=== PATIENT | male | born 1965 | race Caucasian/White ===

== ENCOUNTER 2021-11-13 08:10 | Day surgery (SDC) | payer MEDICAID ==
[2021-11-12 09:39] VITALS: BMI 33.0
[~2021-11-13 08:10] MED LIST: LIDOCAINE 1% (10MG/ML) FOR IV START INTRADERMA PRN; ONDANSETRON 4 MG/2 ML VIAL IVP PRN
[2021-11-13] MEDS: LACTATED RINGERS 1,000 ML IV SCH ×2 (08:23→08:34)
[2021-11-13 08:27] VITALS: TEMP 98.2
[2021-11-13] MEDS ORDERED: MIDAZOLAM 2 MG/2 ML VIAL ONE (09:11)
[2021-11-13] MEDS ORDERED: PROPOFOL 10 MG/ML 20 ML VIAL IV ONE (09:11)
[2021-11-13] MEDS ORDERED: fentaNYL (PF) 50 MCG/ML 2 ML AMP ONE (09:11)
--- NOTE | 2021-11-13 09:28 | P.PCN ---
Date of Procedure: 11/13/21 Preoperative Diagnosis: Screening Postoperative Diagnosis: Transverse colon polyp x 2 Procedure(s) Performed: Colonoscopy with hot snare polypectomy Anesthesia: MAC Surgeon: Malka Galicia Pathology: other (Transverse colon polyps) Condition: stable Disposition: same day Indications for Procedure: 56-year-old male presents today for screening colonoscopy. Risks, benefits and alternatives were provided to the patient. No significant evidence of rectal bleeding. Operative Findings: Transverse colon polyps Description of Procedure: The patient was brought into the endoscopy suite and placed in left lateral decubitus position. Adequate sedation was achieved using conscious sedation. A digital rectal exam was performed and internal hemorrhoids were palpated. An endoscope was then placed in the rectum and advanced to the cecum as identified by landmarks including the appendiceal orifice and the ileocecal valve. The prep was good. The colonoscope was then slowly withdrawn, examining for any mucosal abnormalities. The cecum, ascending, transverse, descending and sigmoid colon were visualized adequately. There were no large neoplastic lesions noted throughout the colon. 2 polyps were noted in the distal transverse colon. One was removed with forceps polypectomy and the other was removed with hot snare polypectomy. These were in close proximity to each other. Hemostasis was maintained. There was no evidence of diverticulosis. Retroflexion was performed in the rectum and internal hemorrhoids were visible. Excess air was removed, the colonoscope withdrawn and the procedure terminated. The patient was then transferred to the recovery unit in stable condition. Repeat colonoscopy should be performed in 5 years.
[2021-11-13 09:38] VITALS: RESP 16
[2021-11-13 09:51] VITALS: BP 129/79; PULSE 65
== END 2021-11-13 10:30 | disposition home or self-care (01) ==
LOC: ORWHC2ENDO 08:10
PROVIDERS: ATTEND Surgery
DX: Z12.11 Encounter for screening for malignant neoplasm of colon (principal); D12.3 Benign neoplasm of transverse colon
CPT/HCPCS: 45380; 45385; 88305; J2250; J3010; J2704

== ENCOUNTER → 2022-05-21 | Outpatient (CLI) | payer MEDICAID ==
[2022-05-21 15:05] LABS: ALT 56 U/L (10-49); AST 41 U/L (14-35); Chol/HDL Ratio 3.08 Ratio; LDL Cholesterol,Calculated 62.1 mg/dL (0.0-131.0); VLDL Calculation 15.58 mg/dL (5.00-40.00)
== END | disposition home or self-care (01) ==
LOC: LABWHC1 07:04
PROVIDERS: ATTEND Internal Medicine Cardiovascular Disease
DX: E78.2 Mixed hyperlipidemia (principal)
CPT/HCPCS: 36415; 80061; 84450; 84460

== ENCOUNTER 2024-07-09 02:49 | Emergency (ER) | payer MEDICAID ==
[2024-07-09 02:54] VITALS: TEMP 97.8
--- NOTE | 2024-07-09 03:43 | ED ---
General Adult HPI - General Source: patient, RN notes reviewed Mode of arrival: ambulatory Limitations: no limitations <Ana Berry - Last Filed: 07/09/24 03:43> <Mikhail Sylvester - Last Filed: 07/09/24 06:09> - General Chief complaint: Back Pain/Injury Stated complaint: Abd & Back Pain Time Seen by Provider: 07/09/24 03:15 - History of Present Illness Initial comments: Quick note- 59-year-old male presenting with complaint of left flank pain radiation into his abdomen and groin that started approximately 12 hours prior to arrival. He denies hematuria, dysuria. States he has a urgency to use the restroom. Denies fevers, chills, nausea, vomiting. (Ana Berry) Dictation was produced using [email or web address] dictation software. please excuse any grammatical, word or spelling errors. Chief Complaint: 59-year-old male with left flank pain History of Present Illness: Patient 59-year-old male with multiple comorbidities presents emergency department 1 day of flank pain. States that its severe in the left flank radiates to his right groin. No history of kidney stones. Denies any hematuria or abnormal urine color. Denies any associated nausea or diaphoresis. Denies any diarrhea. He has been dealing with a cold symptoms recently. The ROS documented in this emergency department record has been reviewed and confirmed by me. Those systems with pertinent positive or negative responses have been documented in the HPI. All other systems are other negative and/or noncontributory. (Mikhail Sylvester) - Related Data Home Medications Medication Instructions Recorded Confirmed Atorvastatin [Lipitor] 80 mg PO DAILY 01/07/15 11/13/21 Carvedilol [Coreg] 12.5 mg PO BID 01/07/15 11/13/21 Famotidine 20 mg PO QAM 01/07/15 11/13/21 Nitroglycerin Sl Tabs [Nitrostat] 0.4 mg SUBLINGUAL DIRECTED PRN 01/07/15 11/13/21 Aspirin [Adult Low Dose Aspirin EC] 81 mg PO DAILY 11/12/21 11/13/21 HYDROcodone/APAP 5-325MG [[place] 1 tab PO DAILY PRN 11/12/21 11/13/21 5-325] Naproxen 500 mg PO BID 11/12/21 11/13/21 Phentermine HCl [Adipex-P] 37.5 mg PO DAILY 11/12/21 11/13/21 amLODIPine [Norvasc] 10 mg PO DAILY 11/12/21 11/13/21 Allergies Allergy/AdvReac Type Severity Reaction Status Date / Time No Known Allergies Allergy Verified 07/09/24 02:54 Review of Systems ROS Other: All systems not noted in ROS Statement are negative. <Ana Berry - Last Filed: 07/09/24 03:43> ROS Other: All systems not noted in ROS Statement are negative. <Mikhail Sylvester - Last Filed: 07/09/24 06:09> ROS Statement: Those systems with pertinent positive or pertinent negative responses have been documented in the HPI. Past Medical History Past Medical History: Coronary Artery Disease (CAD), Hypertension, Myocardial Infarction (DE), Pulmonary Embolus (PE), Rheumatoid Arthritis (RA) Additional Past Medical History / Comment(s): . Last Myocardial Infarction Date:: 10/2011 History of Any Multi-Drug Resistant Organisms: None Reported Past Surgical History: Heart Catheterization With Stent, Hernia Repair, Joint Replacement, Orthopedic Surgery Additional Past Surgical History / Comment(s): meniscus tear repair rt knee, one cardiac stents, rt knee replacement, mult surgeris:rt wrist and rt fingers, bhakti cheeks and collar bone due to injury Past Anesthesia/Blood Transfusion Reactions: Previous Problems w/ Anesthesia, Motion Sickness Additional Past Anesthesia/Blood Transfusion Reaction / Comment(s): "took me awhile to come out" with one surgery Date of Last Stent Placement:: 2011 Past Psychological History: No Psychological Hx Reported Smoking Status: Never smoker - Past Family History Brother(s) Additional Family Medical History / Comment(s): BROTHER #1 -ALCOHOLISM,CHF AGE 27,BROTHER #2 "HEART EXPLODED" AGE 38, BROTHER #3 CABG 2 VESSEL AT AGE 32 Mother Family Medical History: Cancer <Ana Berry - Last Filed: 07/09/24 03:43> General Exam Limitations: no limitations <Ana Berry - Last Filed: 07/09/24 03:43> <Mikhail Sylvester - Last Filed: 07/09/24 06:09> - General Exam Comments Initial Comments: Visual Physical Exam Vital signs reviewed General: Well-appearing, nontoxic, no acute distress. Head: Normocephalic, atraumatic Eyes: PERRLA, EOMI ENT: Airway patent Chest: Nonlabored breathing Skin: No visual rash, normal skin tone Neuro: Alert and oriented 3 Musculoskeletal: No gross abnormalities (Ana Berry) PHYSICAL EXAM: General Impression: Alert and oriented x3, not in acute distress HEENT: Normocephalic atraumatic, extra-ocular movements intact, pupils equal and reactive to light bilaterally, mucous membranes moist. Cardiovascular: Heart regular rate and rhythm Chest: Able to complete full sentences, no retractions, no tachypnea Abdomen: abdomen soft, non-tender, non-distended, no organomegaly Musculoskeletal: Pulses present and equal in all extremities, no peripheral edema Motor: no focal deficits noted Neurological: CN II-XII grossly intact, no focal motor or sensory deficits noted Skin: Intact with no visualized rashes Psych: Normal affect and mood (Mikhail Sylvester) Course Vital Signs 07/09/24 07/09/24 07/09/24 02:50 03:43 05:04 Temperature 97.8 F Pulse Rate 81 70 71 Respiratory 18 18 19 Rate Blood Pressure 207/125 197/117 185/93 O2 Sat by Pulse 96 95 95 Oximetry Medical Decision Making <Ana Berry - Last Filed: 07/09/24 03:43> - Lab Data Result diagrams: 07/09/24 04:26 07/09/24 04:26 <Mikhail Sylvester - Last Filed: 07/09/24 06:09> - Medical Decision Making I completed the quick note portion of this chart signed Ana Berry PA-C (Ana Berry) Was pt. sent in by a medical professional or institution (JUSTIN Daniels, VACUUM TECHNICIAN, urgent care, hospital, or residential...) When possible be specific @ -No Did you speak to anyone other than the patient for history (EMS, parent, family, police, friend...)? What history was obtained from this source @ -No Did you review nursing and triage notes (agree or disagree)? Why? @ -I reviewed and agree with nursing and triage notes Were old charts reviewed (outside hosp., previous admission, EMS record, old EKG, old radiological studies, urgent care reports/EKG's, residential records)? Report findings @ -No old charts were reviewed Differential Diagnosis (chest pain, altered mental status, abdominal pain women, abdominal pain men, vaginal bleeding, musculoskeletal, weakness, fever, dyspnea, syncope, headache, dizziness, GI bleed, back pain, seizure, CVA, palpatations, mental health)? @ -Differential Abdominal Pain Men: Appendicitis, cholecystitis, diverticulosis, ischemic bowel, pancreatitis, hepatitis, UTI, gastroenteritis, AAA, incarcerated hernia, bowel obstruction, constipation, inflammatory bowel, hepatitis, peptic ulcer disease, splenic infarction, perforated viscus, testicular torsion, this is not meant to be an all-inclusive list EKG interpreted by me (3pts min.). @ -None done X-rays interpreted by me (1pt min.). @ -None done CT interpreted by me (1pt min.). @ -CT abdomen pelvis shows nonobstructing kidney stones. Otherwise no acute processes noted U/S interpreted by me (1pt. min.). @ -None done What testing was considered but not performed or refused? (CT, X-rays, U/S, labs)? Why? @ -None What meds were considered but not given or refused? Why? @ -None Was smoking cessation discussed for >3mins.? @ -No Were there social determinants of health that impacted care today? How? (Homelessness, low income, unemployed, alcoholism, drug addiction, transportation, low edu. Level, literacy, decrease access to med. care, skilled nursing, rehab)? @ -No Was there de-escalation of care discussed even if they declined (Discuss DNR or withdrawal of care, Hospice)? DNR status @ -No What co-morbidities impacted this encounter? (DM, HTN, Smoking, COPD, CAD, Cancer, CVA, ARF, Chemo, Hep., AIDS, mental health diagnosis, sleep apnea, morbid obesity)? @ -None Was patient admitted / discharged? Hospital course, mention meds given and route, prescriptions, significant lab abnormalities, going to OR and other pertinent info. @ -59-year-old male presents emergency department with left-sided flank pain that radiates to the groin. Vital signs stable. He has no history of kidney stones. Laboratory evaluation obtained. Labs are unremarkable. CT shows nonobstructing left-sided kidney stones. Patient given analgesics. Observed in the emergency department for several hours. Reevaluated bedside at 6:07 AM fou nd to be stable to condition and denying any symptoms. Likely cause of patient's symptoms was kidney stone however there did not appear to be any obstructing ones. Patient given outpatient referral to urology. Return precautions discussed. Patient discharged Did you discuss the management of the patient with other professionals (professionals i.e. , PA, VACUUM TECHNICIAN, lab, RT, psych nurse, social media marketing analyst, gas scrubber operator, teacher, ship's officer, case worker)? Give summary @ -No Was critical care preformed (if so, how long)? @ -No Undiagnosed new problem with uncertain prognosis? @ -No Drug Therapy requiring intensive monitoring for toxicity (Heparin, Nitro, Insulin, Cardizem)? @ -No Were any procedures done? @ -No Diagnosis/symptom? Acute, or Chronic, or Acute on Chronic? Uncomplicated (without systemic symptoms) or Complicated (systemic symptoms)? @ -Left flank pain Side effects of treatment? @ -No Exacerbation, Progression, or Severe Exacerbation? @ -No Poses a threat to life or bodily function? How? (Chest pain, [place], DE, pneumonia, PE, COPD, DKA, ARF, appy, cholecystitis, CVA, Diverticulitis, Homicidal, Suicidal, threat to staff... and all critical care pts) @ -No (Mikhail Sylvester) - Lab Data Lab Results 07/09/24 07/09/24 07/09/24 Range/Units 04:26 04:26 04:26 WBC 7.9 (3.8-10.6) k/uL RBC 6.07 H (4.30-5.90) m/uL Hgb 18.2 H (13.0-17.5) gm/dL Hct 51.9 (39.0-53.0) % MCV 85.5 (80.0-100.0) fL MCH 29.9 (25.0-35.0) pg MCHC 35.0 (31.0-37.0) g/dL RDW 13.6 (11.5-15.5) % Plt Count 198 (150-450) k/uL MPV 7.9 Neutrophils % 82 % Lymphocytes % 10 % Monocytes % 6 % Eosinophils % 1 % Basophils % 0 % Neutrophils # 6.5 (1.3-7.7) k/uL Lymphocytes # 0.8 L (1.0-4.8) k/uL Monocytes # 0.5 (0-1.0) k/uL Eosinophils # 0.0 (0-0.7) k/uL Basophils # 0.0 (0-0.2) k/uL Sodium 134 L (137-145) mmol/L Potassium 3.9 (3.5-5.1) mmol/L Chloride 101 (98-107) mmol/L Carbon Dioxide 25 (22-30) mmol/L Anion Gap 8 mmol/L BUN 11 (9-20) mg/dL Creatinine 0.79 (0.66-1.25) mg/dL Est GFR (CKD-EPI)AfAm >90 (>60 ml/min/1.73 sqM) Est GFR (CKD-EPI)NonAf >90 (>60 ml/min/1.73 sqM) Glucose 146 H (74-99) mg/dL Calcium 9.2 (8.4-10.2) mg/dL Total Bilirubin 1.9 H (0.2-1.3) mg/dL AST 85 H (17-59) U/L ALT 231 H (4-49) U/L Alkaline Phosphatase 100 (38-126) U/L Total Protein 7.1 (6.3-8.2) g/dL Albumin 4.0 (3.5-5.0) g/dL Urine Color Yellow Urine Appearance Clear (Clear) Urine pH 6.0 (5.0-8.0) Ur Specific [place] 1.025 (1.001-1.035) Urine Protein 2+ H (Negative) Urine Glucose (UA) Negative (Negative) Urine Ketones Negative (Negative) Urine Blood Small H (Negative) Urine Nitrite Negative (Negative) Urine Bilirubin Negative (Negative) Urine Urobilinogen <2.0 (<2.0) mg/dL Ur Leukocyte Esterase Negative (Negative) Urine RBC 1 (0-5) /hpf Urine WBC 1 (0-5) /hpf Ur Squamous Epith Cells <1 (0-4) /hpf Hyaline Casts 2 (0-2) /lpf Urine Mucus Few H (None) /hpf Disposition <Stieler,Ana - Last Filed: 07/09/24 03:43> Is patient prescribed a controlled substance at d/c from ED?: No Time of Disposition: 06:09 <Mikhail Sylvester - Last Filed: 07/09/24 06:09> Clinical Impression: Flank pain Disposition: HOME SELF-CARE Condition: Fair Instructions (If sedation given, give patient instructions): Acute Low Back Pain (ED) Referrals: Kiko Pride MD [STAFF PHYSICIAN] - 1-2 days
[2024-07-09] MEDS: KETOROLAC 15 MG/ML 1 ML VIAL IVP STA (04:28)
[2024-07-09] MEDS: SODIUM CHLORIDE 0.9% 1,000 ML IV STA (04:32)
[2024-07-09 04:37] LABS: Basophils % (A) 0 %; Eosinophils % (A) 1 %; HCT 51.9 % (39.0-53.0); HGB 18.2 gm/dL (13.0-17.5); Lymphocytes # (A) 0.8 k/uL (1.0-4.8); Lymphocytes % (A) 10 %; MCH 29.9 pg (25.0-35.0); MCV 85.5 fL (80.0-100.0); Mean Platelet Volume 7.9; Monocytes # (A) 0.5 k/uL (0-1.0); Monocytes % (A) 6 %; Neutrophils # (A) 6.5 k/uL (1.3-7.7); Neutrophils % (A) 82 %; Platelet Count 198 k/uL (150-450); RBC 6.07 m/uL (4.30-5.90); RDW 13.6 % (11.5-15.5); WBC 7.9 k/uL (3.8-10.6)
[2024-07-09 04:45] LABS: Appearance,Urine Clear (Clear); Bilirubin,Urine Negative (Negative); Blood,Urine Small (Negative); Color,Urine Yellow; Glucose,Urine (UA) Negative (Negative); Hyaline Casts,Urine 2 /lpf (0-2); Ketones,Urine Negative (Negative); Leukocyte Esterase,Urine Negative (Negative); Mucus,Urine Few /hpf; Nitrite,Urine Negative (Negative); Protein,Urine 2+ (Negative); RBC,Urine 1 /hpf (0-5); Specific Gravity,Urine 1.025 (1.001-1.035); Squamous Epithelial Cell,Urine <1 /hpf (0-4); Urobilinogen,Urine <2.0 mg/dL (<2.0); WBC,Urine 1 /hpf (0-5)
[2024-07-09] MEDS: HYDROmorphone 1 MG/ML 1 ML SYRINGE IVP STA (05:00)
[2024-07-09 05:05] VITALS: BP 185/93; PULSE 71
[2024-07-09 05:07] LABS: ALT 231 U/L (4-49); AST 85 U/L (17-59); African American GFR (CKD) >90 (>60 ml/min/1.73 sqM); Alkaline Phosphatase 100 U/L (38-126); Anion Gap 8 mmol/L; Blood Urea Nitrogen 11 mg/dL (9-20); Calcium 9.2 mg/dL (8.4-10.2); Carbon Dioxide 25 mmol/L (22-30); Chloride 101 mmol/L (98-107); Glucose 146 mg/dL (74-99); Non-African American GFR(CKD) >90 (>60 ml/min/1.73 sqM); Potassium 3.9 mmol/L (3.5-5.1); Sodium 134 mmol/L (137-145); Total Bilirubin 1.9 mg/dL (0.2-1.3); Total Protein 7.1 g/dL (6.3-8.2)
--- NOTE | 2024-07-09 05:56 | CT ---
EXAM: CT Abdomen and Pelvis Without Intravenous Contrast CLINICAL HISTORY: ITS.REASON CT Reason: L flank pain w/ radiation into abdomen TECHNIQUE: Axial computed tomography images of the abdomen and pelvis without intravenous contrast. This CT exam was performed using one or more of the following dose reduction techniques: automated exposure control, adjustment of the mA and/or kV according to patient size, and/or use of iterative reconstruction technique. COMPARISON: No relevant prior studies available. FINDINGS: Limitations: Limited evaluation in the absence of contrast. Lung bases: Unremarkable. No mass. No consolidation. ABDOMEN: Liver: Hepatic steatosis. Gallbladder and bile ducts: Unremarkable. No calcified stones. No ductal dilation. Pancreas: Unremarkable. No ductal dilation. Spleen: Unremarkable. No splenomegaly. Adrenals: Unremarkable. No mass. Kidneys and ureters: No evidence of obstructive renal calculi or signs of collecting system dilatation. Nonobstructive calculi within the kidneys bilaterally, the largest within the interpolar right kidney measuring up to 5 mm. Simple bilateral renal cysts. No follow-up of these simple cysts is necessary. Stomach and bowel: No evidence of bowel obstruction. Colonic diverticulosis. No evidence of diverticulitis. PELVIS: Appendix: Normal appendix. Bladder: Unremarkable. No stones. Reproductive: Unremarkable as visualized. ABDOMEN and PELVIS: Intraperitoneal space: Unremarkable. No free air. No significant fluid collection. Bones/joints: Degenerative changes in the spine. No acute fracture. No dislocation. Soft tissues: Unremarkable. Vasculature: Atherosclerotic disease. No abdominal aortic aneurysm. Lymph nodes: Unremarkable. No enlarged lymph nodes. IMPRESSION: 1. Limited evaluation in the absence of contrast. 2. No evidence of obstructive renal calculi or signs of collecting system dilatation. 3. Nonobstructive calculi within the kidneys bilaterally, the largest within the interpolar right kidney measuring up to 5 mm. 4. Normal appendix. 5. No evidence of bowel obstruction. 6. Colonic diverticulosis. No evidence of diverticulitis. 7. No other acute findings.
[2024-07-09 06:28] VITALS: RESP 15
== END 2024-07-09 06:27 | disposition home or self-care (01) ==
LOC: EC 02:49
DX: N20.0 Calculus of kidney (principal)
CPT/HCPCS: 36415; 80053; 85025; 81001; 74176; 99284; 96374; 96375; 96361; J1171; J1885

== ENCOUNTER → 2024-09-29 | Outpatient (CLI) | payer MEDICAID ==
--- NOTE | 2024-09-29 11:39 | MR ---
MRI abdomen. HISTORY: Abnormal liver function studies. COMPARISON: CT abdomen and pelvis dated 07/09/2024. TECHNIQUE: Multiecho multiplanar images of the abdomen were obtained with and without contrast. FINDINGS: The gallbladder is markedly contracted but there is no gallbladder distention, wall thickening, calcu cheng or pericholecystic fluid. There is no biliary ductal dilatation There is no focal mass or organomegaly involving the liver, pancreas, spleen or adrenal glands. There are multiple simple cortical cysts of the kidneys but no solid renal mass or hydronephrosis. Caliber of the abdominal aorta is normal and is no retroperitoneal adenopathy. The bowel loops are normal in caliber and no dilatation or obstruction. There is no free intraperiton eal fluid. IMPRESSION: No significant abnormality seen. [facility], Workstation: [id number] 09/29/2024 11:36 AM
== END | disposition home or self-care (01) ==
LOC: RADMRIMAIN 10:15
PROVIDERS: ATTEND Family Medicine
DX: R79.89 Other specified abnormal findings of blood chemistry (principal); R94.5 Abnormal results of liver function studies
CPT/HCPCS: 74183; A9585